=== PATIENT | female | born 1985 | race Caucasian/White ===

== ENCOUNTER → 2019-07-29 11:32 | Outpatient (CLI) | payer BC, SELFPAY ==
[2019-07-29 10:49] VITALS: BMI 19.2
[2019-07-29 12:37] LABS: Absolute Neutrophil Count 3.3 X10^3/uL (2.0-7.7); Basophil# 0.05 X10^3/uL; Eosinophil# 0.09 X10^3/uL; Eosinophils% 1.8 % (0-5); Hematocrit 40.8 % (37-47); Hemoglobin 13.4 g/dL (12.0-15.0); Lymphocyte % 24.1 % (19-41); Mean Corp Hgb Conc 32.8 g/dL (32-36); Mean Corpuscular Hgb 30.2 pg (27.0-32.0); Mean Corpuscular Volume 92.1 fL (81-99); Mean Platelet Vol. 10.2 fl (6.2-12.0); Monocyte# 0.38 X10^3/uL; Monocyte% 7.6 % (0-10); NRBC Flagged by Analyzer 0 % (0-5); Neutrophil # 3.25 X10^3/uL (2.7-7.7); Neutrophil % 65.3 % (47-70); Platelet Count 294 K/mm3 (150-450); RBC Distribution Width CV 12.9 % (11.6-14.6); RBC Distribution Width SD 43.5 fl (35.1-43.9); Red Blood Count 4.43 M/mm3 (4.2-5.4)
[2019-07-29 13:10] LABS: Anion Gap 6 (5-15); BUN 6 mg/dL (7-18); Calcium,Total 9.5 mg/dL (8.5-10.1); Chloride 105 mmol/L (98-107); Creatinine, Serum 0.75 mg/dL (0.55-1.02); EST Glomerular Filtration Rate 96 mL/min (>60); Est Glom Filt Rate - Afr Amer 116 mL/min (>60); Glucose 78 mg/dL (74-106); Potassium 4.1 mmol/L (3.5-5.1); Sodium Level 137 mmol/L (136-145)
== END ==
PROVIDERS: PCP Internal Medicine; Referring Provider Internal Medicine; Visit Provider Internal Medicine
DX: Z00.00 Encounter for general adult medical examination without abnormal findings (principal)
CPT/HCPCS: 36415; 80048; 85025

== ENCOUNTER → 2022-09-09 | Outpatient (CLI) | payer OTHER, SELFPAY ==
[2022-09-09 19:08] LABS: AST(SGOT) 23 U/L (15-37); Alanine Aminotransfer ALT/SGPT 16 U/L (13-56); Albumin, Serum 3.8 g/dL (3.2-5.0); Alkaline Phosphatase 80 U/L (45-117); Anion Gap 8 (5-15); BUN 14 mg/dL (7-18); BUN/Creat Ratio 22.1 RATIO (10-20); Chloride 104 mmol/L (98-107); Creatinine, Serum 0.63 mg/dL (0.55-1.02); EST Glomerular Filtration Rate 114 mL/min (>60); Est Glom Filt Rate - Afr Amer 137 mL/min (>60); Ferritin 16 ng/mL (8-252); Globulin 3.8 g/dL (2.2-4.2); Glucose 85 mg/dL (74-106); Protein, Total 7.6 g/dL (6.4-8.2); Sodium Level 137 mmol/L (136-145); T4 Free Direct 0.89 ng/dL (0.76-1.46); Thyroid Stim Hormone (TSH) 5.14 uIU/mL (0.358-3.74)
[2022-09-11 15:32] LABS: Anti-Nuclear Antibody Test Negative (.)
[2022-09-11 15:34] LABS: Thyroid Peroxidase AB 580 IU/mL (0-34)
== END | disposition home or self-care (01) ==
LOC: MTLAB 16:22
PROVIDERS: PCP Internal Medicine; Referring Provider Dermatology Pediatric Dermatology; Visit Provider Dermatology Pediatric Dermatology
DX: L40.0 Psoriasis vulgaris (principal)
CPT/HCPCS: 36415; 80053; 82728; 84439; 84443; 86038; 86376

== ENCOUNTER → 2022-10-01 | Outpatient (CLI) | payer OTHER, SELFPAY ==
[2022-10-01 17:05] LABS: T4 Free Direct 0.86 ng/dL (0.76-1.46); Thyroid Stim Hormone (TSH) 6.17 uIU/mL (0.358-3.74)
[2022-10-03 15:27] LABS: Thyroid Peroxidase AB 532 IU/mL (0-34)
== END | disposition home or self-care (01) ==
LOC: BIMLAB 14:53
PROVIDERS: PCP Internal Medicine; Visit Provider Internal Medicine
DX: E06.3 Autoimmune thyroiditis (principal); R94.6 Abnormal results of thyroid function studies
CPT/HCPCS: 36415; 84439; 84443; 86376

== ENCOUNTER → 2022-12-01 | Outpatient (CLI) | payer OTHER, SELFPAY ==
[2022-12-01 15:48] LABS: T4 Free Direct 1.06 ng/dL (0.76-1.46); Thyroid Stim Hormone (TSH) 2.21 uIU/mL (0.358-3.74)
[2022-12-03 04:07] LABS: Thyroid Peroxidase AB > 600 IU/mL (0-34)
== END | disposition home or self-care (01) ==
LOC: BIMLAB 14:32
PROVIDERS: PCP Internal Medicine; Visit Provider Internal Medicine
DX: E06.3 Autoimmune thyroiditis (principal); E03.8 Other specified hypothyroidism
CPT/HCPCS: 36415; 84439; 84443; 86376

== ENCOUNTER 2023-03-10 00:07 | Inpatient (IN) | payer OTHER, SELFPAY ==
[2023-03-10] VITALS (24 sets, daily range): BP systolic 90–121; BP diastolic 57–91; PULSE 60–89; RESP 14–19; TEMP 36.1–36.8; O2SAT 97–100; BMI 21.2; BMI 21.4
--- NOTE | 2023-03-10 00:35 | EDS_ITS ---
HPI History of Present Illness Chief Complaint: Suicidal [facility] Medical History Abnormal thyroid function test Delat's thyroiditis History of back injury Subclinical hypothyroidism Home Medications levothyroxine 50 mcg tablet See Rx Instructions .Route .COMPLEX #60 tabs 12/12/22 [Rx Last Taken Unknown] Allergy/AdvReac Type Severity Reaction Status Date / Time No Known Allergies Allergy Verified 03/10/23 00:09 Family History Mother Liver disease Other Alcoholism Diabetes Hyperlipemia Hypertension Social History Smoking Status: Never smoker alcohol intake: never substance use type: does not use what type of physical activity do you participate in: none EXAM Physical Exam Const Vital Signs: 03/10/23 00:09 03/10/23 01:47 Temperature 97 F L Temperature Source Temporal Pulse Rate 85 80 Respiratory Rate 16 Blood Pressure 121/83 H 92/76 Blood Pressure Mean 95 81 Pulse Ox 98 99 Oxygen Delivery Method Room Air [facility] Narrative Medical decision making narrative: HISTORY OF PRESENT ILLNESS: 37-year-old female here with suicide attempt. Apparently ingested 500 mg (~28, 500 mg) of Tylenol at approximately 430 pm on 03/09/2023 in an attempt to end her life. She notes no HI, AH, VH. No other drug ingestion. REVIEW OF SYSTEMS: Pertinent positives: Suicidal ideation, Pertinent negatives: HI, AH, VH PHYSICAL EXAM: Nursing triage notes reviewed, Vital signs reviewed Constitutional: please see mdm HENT: MMM Eyes: Pupils equal round and reactive to light, Extraocular muscles intact Neck: No stridor, no JVD, full neck ROM Lungs: Clear to auscultation, No wheezing or rales. No increased work of breathing, no conversational dyspnea, no accessory muscle use, no nasal flaring. No respiratory distress noted Heart: Regular rate and rhythm, No murmurs, No rubs and No gallops, 2+ distal pulses (radial, femoral, posterior tibial) in all extremities Abdomen: Soft, there is no tenderness, rigidity, rebound or guarding, no obvious peritoneal signs, no palpable pulsatile abdominal masses, no auscultated abdominal bruit : No CVAT Extremities: No edema Neuro: No focal neurological deficits, cranial nerves II through XII intact, 5/5 strength in all extremities. Intact sensation to light touch in all extremities, 2+ reflexes bilateral patella tendons. Normal gait. No ataxia. Skin: No rash or lesions noted MEDICAL DECISION MAKING: Chief Complaint: Suicidal ideation External records reviewed: No recent psychiatric evaluations Factors affecting care: History of Delta's thyroiditis, hypothyroidism Consults: Behavioral health ALL IMAGES (IF OBTAINED) HAVE BEEN PERSONALLY REVIEWED AND INTERPRETED BY MYSELF. EKG with normal sinus rhythm, normal axis, no intervals, no STEMI Tylenol is + concerning for acute OD Salicylate is negative UDS negative EtOH negative u preg negative BMP shows mild hypokalemia, no GAGE, No anion gap MDM Narrative: The patient was hemodynamically stable, afebrile, nontoxic-appearing. Abdominal exam was benign. I considered the following differential diagnosis: SI, Tylenol overdose I obtained a broad lab and imaging work-up for medical clearance. Including coingestions such as aspirin/salicylates and Tylenol. Spoke with poison control. Recommended starting acetylcysteine then multiplying tylenol by AST/ALT which ever is higher then give 15mg/kg of fomepizole as a one time dose (decreases hepatotoxicity). LFTs within normal limits. N-acetylcysteine was started. Patient admitted for further observation. With hospitalist. The patient and/or family, caregivers express understanding. The patient and/or family, caregivers agrees with the plan. Shared decision making: I will have a discussion with the patient and or visitors regarding risk/benefits of further testing or admission. They will be made aware of of the risk/benefits inherent in this decision they will be given the opportunity to voice understanding. Total critical care time today provided was at least 60 minutes. This excludes separately billable procedures. Critical care time (if documented) is secondary to the patient having high probability of clinically significant/life threatening deterioration in the patient's condition which required my urgent intervention. Impression: 1. Suicidal ideation 2. Suicide attempt 3. Tylenol overdose 4. hypokalemia Dispo: admit to medicine Lab Data Attestation: I reviewed the patient's lab results. Labs: Laboratory Results - last 24 hr 03/10/23 03/10/23 00:30 00:35 WBC 5.7 RBC 4.55 Hgb 13.3 Hct 41.4 MCV 91.0 MCH 29.2 MCHC 32.1 RDW Std Deviation 41.5 RDW Coeff of Jena 12.5 Plt Count 288 MPV 10.6 Immature Gran % (Auto) 0.400 Neut % (Auto) 56.5 Lymph % (Auto) 34.9 Bates % (Auto) 6.8 Eos % (Auto) 0.7 Baso % (Auto) 0.7 Absolute Neuts (auto) 3.2 Absolute Lymphs (auto) 1.99 Nucleated RBC % 0 Sodium 139 Potassium 3.1 L Chloride 106 Carbon Dioxide 23.0 Anion Gap 10 BUN 10 Creatinine 0.91 Estim Creat Clear Calc 80.78 Est GFR (MDRD) Af Amer 90 Est GFR (MDRD) Non-Af 75 BUN/Creatinine Ratio 11.0 Glucose 114 H Calcium 9.1 Total Bilirubin 0.40 Direct Bilirubin 0.14 AST 15 ALT 15 Alkaline Phosphatase 89 Total Protein 8.0 Albumin 4.1 Globulin 3.9 Serum , Qual NEGATIVE Salicylates < 1.7 L Urine Opiates Screen NEGATIVE Urine Methadone Screen NEGATIVE Acetaminophen 259.4 H* Ur Barbiturates Screen NEGATIVE Ur Phencyclidine Scrn NEGATIVE Ur Amphetamines Screen NEGATIVE MDMA (Ecstasy) Screen NEGATIVE U Benzodiazepines Scrn NEGATIVE Urine Cocaine Screen NEGATIVE U Cannabinoids Screen NEGATIVE Ur Drug Screen Comment Ethyl Alcohol < 3.0 Discharge Plan Dx/Rx/DC Orders Clinical Impression: Overdose on Tylenol Disposition Disposition: Acute Care Hospital [facility]
--- NOTE | 2023-03-10 00:43 | EKG12_ITS ---
Test Reason : DYSRHYTHMIA Blood Pressure : / mmHG Vent. Rate : 076 BPM Atrial Rate : 076 BPM P-R Int : 148 ms QRS Dur : 076 ms QT Int : 376 ms P-R-T Axes : 065 051 064 degrees QTc Int : 423 ms Normal sinus rhythm with sinus arrhythmia Normal ECG Confirmed by EDITH COREA, CHARLOTTE ([id number]), field map editor BELINDA MOSLEY ([id number]) on 03/12/2023 2:11:00 PM Referred By: Confirmed By:CHARLOTTE SHARMA MD
[2023-03-10 00:54] LABS: Absolute Lymphocyte Count 1.99 X10^3/uL (0.83-4.51); Absolute Neutrophil Count 3.2 X10^3/uL (2.0-7.7); Basophil# 0.04 X10^3/uL; Basophil% 0.7 % (0-1); Eosinophil# 0.04 X10^3/uL; Eosinophils% 0.7 % (0-5); Hematocrit 41.4 % (37-47); Hemoglobin 13.3 g/dL (12.0-15.0); Lymphocyte # 1.99 X10^3/ul (0.83-4.51); Lymphocyte % 34.9 % (19-41); Mean Corp Hgb Conc 32.1 g/dL (32-36); Mean Corpuscular Hgb 29.2 pg (27.0-32.0); Mean Platelet Vol. 10.6 fl (6.2-12.0); Monocyte# 0.39 X10^3/uL; Monocyte% 6.8 % (0-10); NRBC Flagged by Analyzer 0 % (0-5); Neutrophil # 3.22 X10^3/uL (2.7-7.7); Neutrophil % 56.5 % (47-70); Platelet Count 288 K/mm3 (150-450); RBC Distribution Width CV 12.5 % (11.6-14.6); RBC Distribution Width SD 41.5 fl (35.1-43.9); Red Blood Count 4.55 M/mm3 (4.2-5.4); White Blood Count 5.7 K/mm3 (4.4-11.0)
[2023-03-10] MEDS: 0.9% Normal Saline (1000mL) 1,000 ML 999 ML IV ×2 (00:54→03:40)
[2023-03-10] MEDS: Ondansetron 4 MG/2 ML Vial IV ×2 (00:54→06:39)
[2023-03-10 01:04] LABS: Internal QC Validated? YES +Cl - CLEAR BKGD; Pregnancy, Serum, hCG Quali. NEGATIVE Negative; Record Kit Lot#, Serum Preg. HCG0000667200
[2023-03-10 01:07] LABS: Amphetamine Urine VISTA NEGATIVE (<1000 ng/mL); Barbiturate Urine VISTA NEGATIVE (< 200 ng/mL); Benzodiazepine Urine VISTA NEGATIVE (< 200 ng/mL); Cocaine Urine VISTA NEGATIVE (< 300 ng/mL); Ecstacy Urine VISTA NEGATIVE (< 500 ng/mL); Methadone Urine VISTA NEGATIVE (< 300 ng/mL); PCP Urine VISTA NEGATIVE (< 25 ng/mL); THC Urine VISTA NEGATIVE (< 50 ng/mL); Vista UDS pH Range 4
[2023-03-10 01:09] LABS: Anion Gap 10 (5-15); BUN 10 mg/dL (7-18); Calcium,Total 9.1 mg/dL (8.5-10.1); Chloride 106 mmol/L (98-107); Creatinine, Serum 0.91 mg/dL (0.55-1.02); EST Glomerular Filtration Rate 75 mL/min (>60); Est Glom Filt Rate - Afr Amer 90 mL/min (>60); Estimated Creatinine Clearance 80.78 ml/min; Glucose 114 mg/dL (74-106); Potassium 3.1 mmol/L (3.5-5.1); Sodium Level 139 mmol/L (136-145)
[2023-03-10 01:15] LABS: Acetaminophen (Tylenol) Level 259.4 ug/mL (10.0-30.0); Alcohol, Blood (Medical)-Serum < 3.0 mg/dL; Salicylate < 1.7 mg/dL (2.8-20.0)
[2023-03-10 01:43] LABS: AST(SGOT) 15 U/L (15-37); Alanine Aminotransfer ALT/SGPT 15 U/L (13-56); Albumin, Serum 4.1 g/dL (3.2-5.0); Alkaline Phosphatase 89 U/L (45-117); Bilirubin, Direct 0.14 mg/dL (0.00-0.30); Globulin 3.9 g/dL (2.2-4.2)
--- NOTE | 2023-03-10 01:56 | PCM.HP.STD ---
HPI - General General Date of Admission: 03/10/23 Date of Service: 03/10/23 Chief Complaint: Tylenol overdose in suicide attempt HPI Narrative ANIL HAYES, is a 37 F with a significant history of Delta thyroiditis on who presents emergency department with a Tylenol overdose inside at times. Reportedly patient took 28 pills of 500 mg tablets of Tylenol. She took the pill at about 4 PM on March 09, 2023. Thereafter her brought her to the emergency department. She reports lower abdominal pain, nausea and vomiting. She states that she has a lot going on that is why she tried to hurt herself. ED doctor discussed the case with poison control and recommendation was that patient be kept at the hospital. [facility] Medical History Abnormal thyroid function test Delta's thyroiditis History of back injury Subclinical hypothyroidism Home Medications levothyroxine 50 mcg tablet See Rx Instructions .Route .COMPLEX #60 tabs 12/12/22 [Rx Last Taken Unknown] Allergy/AdvReac Type Severity Reaction Status Date / Time No Known Allergies Allergy Verified 03/10/23 00:09 Family History Mother Liver disease Other Alcoholism Diabetes Hyperlipemia Hypertension no surgical history Social History Smoking Status: Never smoker alcohol intake: never substance use type: does not use what type of physical activity do you participate in: none ROS ROS Narrative Pertinent positives and pertinent negatives as noted in HPI. All other systems were reviewed and are negative Vital Signs Vital Signs Vital Signs: 03/10/23 00:09 03/10/23 01:47 Temperature 97 F L Temperature Source Temporal Pulse Rate 85 80 Respiratory Rate 16 Blood Pressure 121/83 H 92/76 Blood Pressure Mean 95 81 Pulse Ox 98 99 Oxygen Delivery Method Room Air Weight Weight: 59.8 kg Body Mass Index (BMI) 21.2 Physical Exam Narrative Physical exam: General: Well-nourished, well-developed. Head: Normocephalic, atraumatic, no tenderness Eyes: Vision is grossly intact. EOMI ENT, no trauma, moist mucous membranes, no rhinorrhea Neck: Nontender, No thyromegaly. CVS: Regular rate and rhythm. S1-S2 present. No murmur, gallop or rub. Respiratory : clear to auscultation bilaterally, chest wall nontender Abdomen: Soft, tender, nondistended, normal bowel sounds, no masses : Deferred Back: Nontender, no CVA tenderness. Extremities: Nontender full range of motion, no trauma Skin: Normal color, no trauma, abrasions Neuro: Alert, oriented, cranial nerves II through XII grossly intact. Psychiatry: Appears depressed with monotonic voice and psychomotor retardation Results Lab / Micro Data 03/10/23 00:30 03/10/23 00:30 Labs: Laboratory Results - last 24 hr 03/10/23 00:30: WBC 5.7, RBC 4.55, Hgb 13.3, Hct 41.4, MCV 91.0, MCH 29.2, MCHC 32.1, RDW Std Deviation 41.5, RDW Coeff of Jena 12.5, Plt Count 288, MPV 10.6, Immature Gran % (Auto) 0.400, Neut % (Auto) 56.5, Lymph % (Auto) 34.9, Terry % (Auto) 6.8, Eos % (Auto) 0.7, Baso % (Auto) 0.7, Absolute Neuts (auto) 3.2, Absolute Lymphs (auto) 1.99, Nucleated RBC % 0, Sodium 139, Potassium 3.1 L, Chloride 106, Carbon Dioxide 23.0, Anion Gap 10, BUN 10, Creatinine 0.91, Estim Creat Clear Calc 80.78, Est GFR (MDRD) Af Amer 90, Est GFR (MDRD) Non-Af 75, BUN/Creatinine Ratio 11.0, Glucose 114 H, Calcium 9.1, Total Bilirubin 0.40, Direct Bilirubin 0.14, AST 15, ALT 15, Alkaline Phosphatase 89, Total Protein 8.0, Albumin 4.1, Globulin 3.9, Serum , Qual NEGATIVE, Salicylates < 1.7 L, Acetaminophen 259.4 H*, Ethyl Alcohol < 3.0 03/10/23 00:35: Urine Opiates Screen NEGATIVE, Urine Methadone Screen NEGATIVE, Ur Barbiturates Screen NEGATIVE, Ur Phencyclidine Scrn NEGATIVE, Ur Amphetamines Screen NEGATIVE, MDMA (Ecstasy) Screen NEGATIVE, U Benzodiazepines Scrn NEGATIVE, Urine Cocaine Screen NEGATIVE, U Cannabinoids Screen NEGATIVE, Ur Drug Screen Comment Micro: Microbiology 03/10/23 00:35 Nasal Secretion SARS-CoV-2 Antigen (Rapid) - Final Assessment & Plan Assessment/Plan (1) Overdose on Tylenol: QUALIFIERS: Encounter type: initial encounter Injury intent: intentional self-harm Qualified Code(s): T39.1X2A - Poisoning by 4-Aminophenol derivatives, intentional self-harm, initial encounter (2) Suicide attempt by drug overdose: PLAN: Plan Suicidal attempt by Tylenol overdose ED labs reviewed showed acetaminophen level of 259.4. Started on acetylcysteine at the ED and continued. EKG with sinus rhythm with no QTc prolongation. Supportive treatment with as needed IV antiemetics. Normal saline infusion ordered. Liver biochemistry normal. Trend CMP. Tylenol level Suicidal precautions. Case management consult Trend Tylenol level. DVT prophylaxis Low risk Time spent in the patient's overall evaluation,decision-making process, review of diagnostic data, adjustment of management, discussion with other providers, nursing nursing and ancillary staff involved in patient's care documentation, 65 minutes. Charges/Coding Visit Charges Inpatient E&M: 48096 Init Hosp L3
[2023-03-10] MEDS: Metoclopramide 10 MG/2 ML Vial 5 MG IV (03:40)
[2023-03-10] MEDS: proCHLORPERazine 10 MG/2 ML Vial 5 MG IV (05:51)
[2023-03-10] MEDS: 0.9% Saline Lock 10 ML Syringe IV ×2 (05:52→06:40)
[2023-03-10] MEDS: 0.9% Normal Saline (1000mL) 1,000 ML 75 ML IV ×2 (05:52→17:46)
--- NOTE | 2023-03-10 06:53 | NURSING ---
Pt arrived to unit from ED. complaining of Nausea. Zofran given. Sitter present at bedside. patient is very drowsy with flat effect. one word answers. very quiet. oriented and responsive. vital signs stable. on RA. LS clear. spouse at bedside.
[2023-03-10] MEDS: Levothyroxine 50 MCG Tablet PO (08:24)
[2023-03-10] MEDS: Potassium Chloride Oral Tablet 20 MEQ 40 MEQ PO (08:24)
[2023-03-10 09:56] LABS: Absolute Lymphocyte Count 0.91 X10^3/uL (0.83-4.51); Absolute Neutrophil Count 3.1 X10^3/uL (2.0-7.7); Basophil# 0.02 X10^3/uL; Basophil% 0.5 % (0-1); Hematocrit 35.4 % (37-47); Hemoglobin 11.5 g/dL (12.0-15.0); Lymphocyte # 0.91 X10^3/ul (0.83-4.51); Lymphocyte % 21.1 % (19-41); Mean Corp Hgb Conc 32.5 g/dL (32-36); Mean Corpuscular Hgb 29.6 pg (27.0-32.0); Mean Platelet Vol. 10.8 fl (6.2-12.0); Monocyte# 0.29 X10^3/uL; Monocyte% 6.7 % (0-10); NRBC Flagged by Analyzer 0 % (0-5); Neutrophil # 3.08 X10^3/uL (2.7-7.7); Neutrophil % 71.5 % (47-70); Platelet Count 251 K/mm3 (150-450); RBC Distribution Width CV 12.5 % (11.6-14.6); RBC Distribution Width SD 41.4 fl (35.1-43.9); Red Blood Count 3.89 M/mm3 (4.2-5.4); White Blood Count 4.3 K/mm3 (4.4-11.0)
--- NOTE | 2023-03-10 09:56 | CON.PCM.CC_ITS ---
Assessment & Plan Assessment/Plan (1) Suicide attempt by drug overdose: (2) Overdose on Tylenol: QUALIFIERS: Encounter type: initial encounter Injury intent: i ntentional self-harm Qualified Code(s): T39.1X2A - Poisoning by 4-Aminophenol derivatives, intentional self-harm, initial encounter (3) Delta's thyroiditis: PLAN: Plan * Patient ingested 28 pills of Tylenol 500 mg at 4 PM yesterday * ED physician contacted poison control who recommended slow sustained infusion. She will continue acetylcysteine until around 5 PM. We will obtain repeat LFTs and Tylenol levels before discontinuing acetylcysteine * Awaiting PT INR levels before initiating chemical DVT prophylaxis * Bedside sitter * Social work is on board * Continue close ICU monitoring for liver enzymes and concern for any deteri oration as a consequence of drug overdose * Patient is at risk of deterioration due to Tylenol overdose I spent 33 minutes of critical care time excluding the procedure time. I reviewed lab work, images, previous records and medication list. HPI Consult Data Date of Consult: 03/10/23 HPI Narrative Reason for Consultation: ICU care HPI Narrative: ANIL HAYES, is a 37 F with past medical history of hypothyroidism who presents with suicidal ideation and Tylenol over [employer]. She reportedly took 28 pills of 500 mg of Tylenol tablets. She reportedly ingested the Tylenol at 4 PM yesterday. ED contacted poison control who recommended initiation of acetylcysteine. Patient's liver enzymes appear to be within normal limits. She has a bedside sitter for suicidal ideation. This morning she has complains of nausea vomiting which has been improving. She is going to try to have some breakfast. Otherwise she denies fever, chills, weight loss, or cough. [facility] Medical History Abnormal thyroid function test Delta's thyroiditis History of back injury Subclinical hypothyroidism Home Medications levothyroxine 50 mcg tablet See Rx Instructions .Route .COMPLEX #60 tabs 12/12/22 [Rx Last Taken Unknown] clobetasol 0.05 % scalp solution 1 applic topical DAILY PSORIASIS 03/10/23 [History Last Taken Unknown] Allergy/AdvReac Type Severity Reaction Status Date / Time No Known Allergies Allergy Verified 03/10/23 00:09 Family History Mother Liver disease Other Alcoholism Diabetes Hyperlipemia Hypertension Surgical History no surgical history Social History Smoking Status: Never smoker alcohol intake: never substance use type: does not use what type of physical activity do you participate in: none ROS ROS Narrative Negative except as mentioned above Physical Exam Narrative General alert oriented in no acute distress HEENT. Normocephalic atraumatic, pupils equal and reactive Respiratory equal air entry bilaterally, no wheezing Cardiac S1-S2, regular rate and rhythm GI abdomen soft and nontender MSK no lower extremity edema Skin no rashes Neuro moves all extremities, no dysarthria, no facial droop Medical Records Data Attestation: I reviewed the patient's medical records Lab / Micro Data Attestation: I reviewed the patient's lab results. 03/10/23 00:30 03/10/23 00:30 Labs: Laboratory Results - last 24 hr 03/10/23 00:30: WBC 5.7, RBC 4.55, Hgb 13.3, Hct 41.4, MCV 91.0, MCH 29.2, MCHC 32.1, RDW Std Deviation 41.5, RDW Coeff of Jena 12.5, Plt Count 288, MPV 10.6, Immature Gran % (Auto) 0.400, Neut % (Auto) 56.5, Lymph % (Auto) 34.9, [place] % (Auto) 6.8, Eos % (Auto) 0.7, Baso % (Auto) 0.7, Absolute Neuts (auto) 3.2, Absolute Lymphs (auto) 1.99, Nucleated RBC % 0, Sodium 139, Potassium 3.1 L, Chloride 106, Carbon Dioxide 23.0, Anion Gap 10, BUN 10, Creatinine 0.91, Estim Creat Clear Calc 80.78, Est GFR (MDRD) Af Amer 90, Est GFR (MDRD) Non-Af 75, BUN/Creatinine Ratio 11.0, Glucose 114 H, Calcium 9.1, Total Bilirubin 0.40, Direct Bilirubin 0.14, AST 15, ALT 15, Alkaline Phosphatase 89, Total Protein 8.0, Albumin 4.1, Globulin 3.9, Serum , Qual NEGATIVE, Salicylates < 1.7 L, Acetaminophen 259.4 H*, Ethyl Alcohol < 3.0 03/10/23 00:35: Urine Opiates Screen NEGATIVE, Urine Methadone Screen NEGATIVE, Ur Barbiturates Screen NEGATIVE, Ur Phencyclidine Scrn NEGATIVE, Ur Amphetamines Screen NEGATIVE, MDMA (Ecstasy) Screen NEGATIVE, U Benzodiazepines Scrn NEGATIVE, Urine Cocaine Screen NEGATIVE, U Cannabinoids Screen NEGATIVE, Ur Drug Screen Comment Micro: Microbiology 03/10/23 00:35 Nasal Secretion SARS-CoV-2 Antigen (Rapid) - Final Charges/Coding Procedures Hospitalists Procedures: 52935 Critial Care 1st Hr
[2023-03-10 10:04] LABS: International Normalized Ratio 1.3; Prothrombin Time (Protime)PT. 16.1 SECONDS (11.7-14.9)
[2023-03-10 10:15] LABS: ALB/GLOB Ratio 0.9 RATIO (0.9-2.4); AST(SGOT) 13 U/L (15-37); Alanine Aminotransfer ALT/SGPT 19 U/L (13-56); Albumin, Serum 3.1 g/dL (3.2-5.0); Alkaline Phosphatase 63 U/L (45-117); Anion Gap 7 (5-15); BUN 5 mg/dL (7-18); BUN/Creat Ratio 7.8 RATIO (10-20); Calcium,Total 7.8 mg/dL (8.5-10.1); Chloride 112 mmol/L (98-107); Creatinine, Serum 0.64 mg/dL (0.55-1.02); EST Glomerular Filtration Rate 111 mL/min (>60); Est Glom Filt Rate - Afr Amer 135 mL/min (>60); Estimated Creatinine Clearance 114.86 ml/min; Globulin 3.5 g/dL (2.2-4.2); Glucose 116 mg/dL (74-106); Potassium 3.8 mmol/L (3.5-5.1); Protein, Total 6.6 g/dL (6.4-8.2); Sodium Level 140 mmol/L (136-145)
--- NOTE | 2023-03-10 14:34 | CASEMGMT ---
Social Work Met with patient in room, introducing to self and social work role. Patient's [place] in the room, along with a 1:1 [facility] sitter. Asked to leave the room for private conversation, and offered for 1:1 sitter to take a break while this conventional underwriter spoke with patient privately. cooperative with social work request to leave the room. Completed social determinants of health screening. See intervention for further details of screening. No additional resources provided this date. Denies any personal safety concern with or family. Also checked in with patient related to reason for admission. Explored with patient reason for admission: Overdose of #28, 500mg tablets of Tylenol in a suicide attempt. Patient shares with this conventional underwriter has been feeling overwhelmed for some time now, with pressures and responsibilities mounting in patient's life becoming more overwhelming causing an increase of emotional distress. Patient reports belief to be experiencing both depression and anxiety. Reports has been thinking about suicide for some time now (was not specific on the timeframe, but was clear this was not an impulsive act). Reports yesterday became overwhelmed, thinking about the week ahead; all of the things patient needs to do that patient decided to attempt suicide. Patient reports took the Tylenol, but did not realize it would take so long to take effect. Patient reports after a couple of hours, started to feel ill and then told what she had done. Patient reports to feel her actions were a cry for help but also admits other recent depressive symptoms. Mood: Depressed mood and anxiety reported. Symptoms: hopelessness, helplessness, poor sleep and appetite Forgets to eat. 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 of 14 years is reported to have hoarding issues, to the point that patient is embarrassed to invite people over. Reports does not talk to her about this, and reports belief that is aware of this as a stressor to patient. Reports both the work and home situation contribute to patient's anxiety. 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 [facility], so people have many responsibilities. Patient reports belief that needs to work on learning to say no and be okay with this. Coping skills: Unable to identify any coping skills, or anything patient enjoys doing. Mental health treatment history: No history of counseling or medication. Family history: Reports a cousin by suicide years ago; believes by gunshot. Access to Lethal mean: Reports had guns in the home. Denies knowing how to use guns, does not know where they are at, and believes are locked up. Educated patient that prior to leaving the hospital, prior to return to community, that this will need to be addressed with patient's . Assessment: Patient cooperative and pleasant with social work visit. Appeared slightly guarded, though answered questions asked. Patient appeared surprised when medical social worker asked about coping, and was unable to say any coping skills, stating I don't know. Discussed possibility of inpatient psychiatric admission, in light of attempt, and attempt which resulted in ICU stay for stabilization. Patient reports would be cooperative with recommendations for care. Emotional support offered to patient. Plan: Look at inpatient psychiatric care once medically stable. Hospital SW or Crisis from [facility] to assist. -JENNA Anderson, DORA
[2023-03-10] MEDS: Enoxaparin 40 MG/0.4 ML Syringe SC (15:31)
[2023-03-10 22:28] LABS: Acetaminophen (Tylenol) Level 11.1 ug/mL (10.0-30.0)
[2023-03-11] VITALS (11 sets, daily range): BP systolic 88–116; BP diastolic 64–88; PULSE 51–75; RESP 15–19; TEMP 36.3–36.7; O2SAT 98–100; BMI 21.6
[2023-03-11 03:53] LABS: Absolute Lymphocyte Count 2.18 X10^3/uL (0.83-4.51); Absolute Neutrophil Count 2.1 X10^3/uL (2.0-7.7); Basophil# 0.04 X10^3/uL; Basophil% 0.9 % (0-1); Eosinophil# 0.06 X10^3/uL; Eosinophils% 1.3 % (0-5); Hematocrit 34.4 % (37-47); Hemoglobin 10.8 g/dL (12.0-15.0); Lymphocyte # 2.18 X10^3/ul (0.83-4.51); Lymphocyte % 47.1 % (19-41); Mean Corp Hgb Conc 31.4 g/dL (32-36); Mean Corpuscular Volume 92.5 fL (81-99); Mean Platelet Vol. 10.7 fl (6.2-12.0); Monocyte# 0.27 X10^3/uL; Monocyte% 5.8 % (0-10); NRBC Flagged by Analyzer 0 % (0-5); Neutrophil # 2.08 X10^3/uL (2.7-7.7); Neutrophil % 44.9 % (47-70); Platelet Count 219 K/mm3 (150-450); RBC Distribution Width SD 43.9 fl (35.1-43.9); Red Blood Count 3.72 M/mm3 (4.2-5.4); White Blood Count 4.6 K/mm3 (4.4-11.0)
[2023-03-11 04:18] LABS: AST(SGOT) 12 U/L (15-37); Alanine Aminotransfer ALT/SGPT 15 U/L (13-56); Albumin, Serum 3.1 g/dL (3.2-5.0); Alkaline Phosphatase 57 U/L (45-117); Anion Gap 6 (5-15); BUN 1 mg/dL (7-18); BUN/Creat Ratio 1.7 RATIO (10-20); Calcium,Total 8.1 mg/dL (8.5-10.1); Chloride 114 mmol/L (98-107); Creatinine, Serum 0.58 mg/dL (0.55-1.02); EST Glomerular Filtration Rate 126 mL/min (>60); Est Glom Filt Rate - Afr Amer 152 mL/min (>60); Estimated Creatinine Clearance 126.74 ml/min; Globulin 3.2 g/dL (2.2-4.2); Glucose 89 mg/dL (74-106); Potassium 3.8 mmol/L (3.5-5.1); Protein, Total 6.3 g/dL (6.4-8.2); Sodium Level 141 mmol/L (136-145)
[2023-03-11 04:30] LABS: Acetaminophen (Tylenol) Level 4.2 ug/mL (10.0-30.0); International Normalized Ratio 1.3; Prothrombin Time (Protime)PT. 16.1 SECONDS (11.7-14.9)
[2023-03-11] MEDS: 0.9% Normal Saline (1000mL) 1,000 ML 75 ML IV (05:20)
[2023-03-11] MEDS: Levothyroxine 50 MCG Tablet PO (05:20)
--- NOTE | 2023-03-11 09:14 | PCM.PN.HOSP ---
Subjective Subjective Doing well, denies any abdominal pain. Tylenol level is normal and liver function tests are normal Objective Data Objective Data Vital Signs: Vital Signs Temp Pulse Resp BP Pulse Ox O2 Del Method 97.9 F 73 16 103/75 99 Room Air 03/11/23 08:00 03/11/23 08:00 03/11/23 08:00 03/11/23 08:00 03/11/23 08:00 03/11/23 08:00 Oxygen Delivery Method Room Air Weight: 134 lb 8 oz Body Mass Index (BMI) 21.6 Intake & Output: Intake and Output for Last 24 Hours 03/10/23 03/11/23 03/12/23 03:59 03:59 03:59 Intake Total 1000 / 1000 3922.20 / 3922.20 1078.75 / 1078.75 Output Total 0 / 0 0 / 0 Balance 1000 / 1000 3922.20 / 3922.20 1078.75 / 1078.75 Lab / Micro Data 03/11/23 03:40 03/11/23 03:40 Labs: Laboratory Results - last 24 hr 03/10/23 09:35: WBC 4.3 L, RBC 3.89 L, Hgb 11.5 L, Hct 35.4 L, MCV 91.0, MCH 29.6, MCHC 32.5, RDW Std Deviation 41.4, RDW Coeff of Jena 12.5, Plt Count 251, MPV 10.8, Immature Gran % (Auto) 0.200, Neut % (Auto) 71.5 H, Lymph % (Auto) 21.1, Edwards % (Auto) 6.7, Eos % (Auto) 0.0, Baso % (Auto) 0.5, Absolute Neuts (auto) 3.1, Absolute Lymphs (auto) 0.91, Nucleated RBC % 0, PT 16.1 H, INR 1.3, Sodium 140, Potassium 3.8, Chloride 112 H, Carbon Dioxide 21.0, Anion Gap 7, BUN 5 L, Creatinine 0.64, Estim Creat Clear Calc 114.86, Est GFR (MDRD) Af Amer 135, Est GFR (MDRD) Non-Af 111, BUN/Creatinine Ratio 7.8 L, Glucose 116 H, Calcium 7.8 L, Total Bilirubin 0.50, AST 13 L, ALT 19, Alkaline Phosphatase 63, Total Protein 6.6, Albumin 3.1 L, Globulin 3.5, Albumin/Globulin Ratio 0.9, Acetaminophen 104.0 H* 03/10/23 22:00: Acetaminophen 11.1 03/11/23 03:40: WBC 4.6, RBC 3.72 L, Hgb 10.8 L, Hct 34.4 L, MCV 92.5, MCH 29.0, MCHC 31.4 L, RDW Std Deviation 43.9, RDW Coeff of Jena 13.0, Plt Count 219, MPV 10.7, Immature Gran % (Auto) 0.000, Neut % (Auto) 44.9 L, Lymph % (Auto) 47.1 H, Edwards % (Auto) 5.8, Eos % (Auto) 1.3, Baso % (Auto) 0.9, Absolute Neuts (auto) 2.1, Absolute Lymphs (auto) 2.18, Nucleated RBC % 0, PT 16.1 H, INR 1.3, Sodium 141, Potassium 3.8, Chloride 114 H, Carbon Dioxide 21.0, Anion Gap 6, BUN 1 L, Creatinine 0.58, Estim Creat Clear Calc 126.74, Est GFR (MDRD) Af Amer 152, Est GFR (MDRD) Non-Af 126, BUN/Creatinine Ratio 1.7 L, Glucose 89, Calcium 8.1 L, Total Bilirubin 0.50, AST 12 L, ALT 15, Alkaline Phosphatase 57, Total Protein 6.3 L, Albumin 3.1 L, Globulin 3.2, Albumin/Globulin Ratio 1.0, Acetaminophen 4.2 L Micro: Microbiology 03/10/23 00:35 Nasal Secretion SARS-CoV-2 Antigen (Rapid) - Final Physical Exam Narrative General: Alert, Oriented x3, Cooperative, No apparent distress HEENT: Atraumatic, PERRLA, EOMI, Normocephalic Oral: Moist Mucosa Neck: Supple, No JVD Lungs: Clear to auscultation, Normal air movement, No rhonchi, No wheeze, No rales Cardiovascular: Regular rate, Regular Rhythm, Normal S1, Normal S2, No murmurs Abdomen: Soft, Non Tender, Non-Distended, No Hepato-splenomegaly Extremities: No edema, Capillary Refill Less than 3 Seconds Skin: No rashes, No breakdown Musculoskeletal: No Tenderness to Palpation of Joints or Extremities Neurological: Cranial nerves II-XII grossly intact, Motor Exam 5/5 strength throughout, Sensory exam intact to light touch and pain Psych/Mental Status: Depression here for suicide attempt Assessment & Plan Assessment/Plan (1) Overdose on Tylenol: QUALIFIERS: Encounter type: initial encounter Injury intent: intentional self-harm Qualified Code(s): T39.1X2A - Poisoning by 4-Aminophenol derivatives, intentional self-harm, initial encounter (2) Suicide attempt by drug overdose: PLAN: Plan 1. Suicide attempt with Tylenol overdose ? She has completed N-acetylcysteine ? Liver functions are stable and Tylenol levels are stable ? She is medically cleared for discharge, will consult crisis for mental health placement 2. Hypothyroidism ? Stable ? Continue with Synthroid DVT: Ambulation Charges/Coding Visit Charges Inpatient E&M: 34848 Subs Hosp L2
--- NOTE | 2023-03-11 09:40 | PN.CC_ITS ---
Assessment & Plan Assessment/Plan (1) Suicide attempt by drug overdose: (2) Overdose on Tylenol: QUALIFIERS: Encounter type: initial encounter Injury intent: i ntentional self-harm Qualified Code(s): T39.1X2A - Poisoning by 4-Aminophenol derivatives, intentional self-harm, initial encounter (3) Delta's thyroiditis: PLAN: Plan * Patient ingested 28 pills of Tylenol 500 mg at 4 PM on 03/09 * Patient completed acetylcysteine. Her Tylenol level is now within normal limits. Her LFTs remain normal * Bedside sitter * Social work is on board * Patient is stable for transfer out of the ICU and medically cleared for psychiatric evaluation Subjective Subjective No acute events. Patient's LFTs have remained normal. Her Tylenol level has normalized. She has no complaints this morning Objective Data Objective Data Vital Signs: Vital Signs Temp Pulse Resp BP Pulse Ox O2 Del Method 36.6 C 62 16 107/80 100 Room Air 03/11/23 09:00 03/11/23 09:00 03/11/23 09:00 03/11/23 09:00 03/11/23 09:00 03/11/23 09:00 Oxygen Delivery Method Room Air Weight: 61.008 kg Body Mass Index (BMI) 21.6 Intake & Output: Intake and Output for Last 24 Hours 03/09/23 03/10/23 03/11/23 23:59 23:59 23:59 Intake Total 3892.30 / 3892.30 2108.65 / 2108.65 Output Total 0 / 0 0 / 0 Balance 3892.30 / 3892.30 2108.65 / 2108.65 Lab / Micro Data 03/11/23 03:40 03/11/23 03:40 Labs: Laboratory Results - last 24 hr 03/10/23 09:35: WBC 4.3 L, RBC 3.89 L, Hgb 11.5 L, Hct 35.4 L, MCV 91.0, MCH 29.6, MCHC 32.5, RDW Std Deviation 41.4, RDW Coeff of Jena 12.5, Plt Count 251, MPV 10.8, Immature Gran % (Auto) 0.200, Neut % (Auto) 71.5 H, Lymph % (Auto) 21.1, [place] % (Auto) 6.7, Eos % (Auto) 0.0, Baso % (Auto) 0.5, Absolute Neuts (auto) 3.1, Absolute Lymphs (auto) 0.91, Nucleated RBC % 0, PT 16.1 H, INR 1.3, Sodium 140, Potassium 3.8, Chloride 112 H, Carbon Dioxide 21.0, Anion Gap 7, BUN 5 L, Creatinine 0.64, Estim Creat Clear Calc 114.86, Est GFR (MDRD) Af Amer 135, Est GFR (MDRD) Non-Af 111, BUN/Creatinine Ratio 7.8 L, Glucose 116 H, Calcium 7.8 L, Total Bilirubin 0.50, AST 13 L, ALT 19, Alkaline Phosphatase 63, Total Protein 6.6, Albumin 3.1 L, Globulin 3.5, Albumin/Globulin Ratio 0.9, Acetaminophen 104.0 H* 03/10/23 22:00: Acetaminophen 11.1 03/11/23 03:40: WBC 4.6, RBC 3.72 L, Hgb 10.8 L, Hct 34.4 L, MCV 92.5, MCH 29.0, MCHC 31.4 L, RDW Std Deviation 43.9, RDW Coeff of Jena 13.0, Plt Count 219, MPV 10.7, Immature Gran % (Auto) 0.000, Neut % (Auto) 44.9 L, Lymph % (Auto) 47.1 H, Berks % (Auto) 5.8, Eos % (Auto) 1.3, Baso % (Auto) 0.9, Absolute Neuts (auto) 2.1, Absolute Lymphs (auto) 2.18, Nucleated RBC % 0, PT 16.1 H, INR 1.3, Sodium 141, Potassium 3.8, Chloride 114 H, Carbon Dioxide 21.0, Anion Gap 6, BUN 1 L, Creatinine 0.58, Estim Creat Clear Calc 126.74, Est GFR (MDRD) Af Amer 152, Est GFR (MDRD) Non-Af 126, BUN/Creatinine Ratio 1.7 L, Glucose 89, Calcium 8.1 L, Total Bilirubin 0.50, AST 12 L, ALT 15, Alkaline Phosphatase 57, Total Protein 6.3 L, Albumin 3.1 L, Globulin 3.2, Albumin/Globulin Ratio 1.0, Acetaminophen 4.2 L Micro: Microbiology 03/10/23 00:35 Nasal Secretion SARS-CoV-2 Antigen (Rapid) - Final Physical Exam Narrative General alert oriented in no acute distress HEENT. Normocephalic atraumatic, pupils equal and reactive Respiratory equal air entry bilaterally, no wheezing Cardiac S1-S2, regular rate and rhythm GI abdomen soft and nontender MSK no lower extremity edema Skin no rashes Neuro moves all extremities, no dysarthria, no facial droop Charges/Coding Visit Charges Inpatient E&M: 45590 Subs Hosp L3
[2023-03-11] MEDS: Clobetasol Propionate 0.05% Cream 1 APPLIC TOPICAL (09:47)
[2023-03-11] MEDS: Enoxaparin 40 MG/0.4 ML Syringe SC (09:48)
--- NOTE | 2023-03-11 09:59 | NURSING ---
crisis in to assess pt and pt told crisis that was not going for tx and that was ok to just go home protocol on pink slipping went over with pt but wanting to talk to . dr. wild texted and in to see pt. pt aware that is not voluntary and that will be going in fact. pt more accepting of fact and subdued. cooperative with care. tele dc'd per status change and sitter remains. no other needs at this time
--- NOTE | 2023-03-11 11:48 | NURSING ---
pt brother in and wanting to talk with regarding a transfer to a facility in [place] and me taking her there dr. wild on unit and talking with brother with pt's consent verbally to do so. crisis called and looking into a facility and brother aware that has to be third libertarian acceptance and cannot just get word of mouth saying he would take her.
--- NOTE | 2023-03-11 13:29 | NURSING ---
[id number] spoke to an intake admission coordinator for [facility] in [place], [place] via phone after brother called to start transfer process pt labs, h&p and demographics faxed over with pink slip documentation per request. pt contines to be cooperative. eating lunch in bed after being up to bathroom. psych protocol, admission process teaching continues. family frustrated but understood. dr. wild updated as well
--- NOTE | 2023-03-11 16:29 | NURSING ---
called for update and aware that accepting at generations and that greens picker time 1730. will bring some clothes in a bit.
--- NOTE | 2023-03-11 16:34 | CHAPLAIN ---
Type of Pastoral Visit _x__ Initial Visit ___ Follow-up Visit ___ On-call Visit ___ General Patient Visit ___ Spiritual Assessment ___ Family Conference ___ Bereavement ___ Rapid Response ___ Code Blue ___ Other (describe below) Pastoral Care Referral From _x__ Patient ___ Family ___ Nurse ___ Physician ___ Swatch Maker ___ Sfdc Architect ___ Other (describe below) Sacrament/Intervention _x__ Active listening ___ Anointing ___ Voodoo ___ Bereavement ___ Communion _x__ Jacqui exploration ___ _x__ Life review _x__ Prayer ___ Reconciliation ___ Sacrament of Sick _x__ Supportive presence ___ Wedding ___ Other (describe below) Pastoral Comments patient has a sitter and a brother in the room; interaction with brother is positive with this shipping team leader as he explains I have been a shipping team leader and am now a counselor with mental health with I've driven 10 hours today to be here for my sister; sitter offers to leave and invites brother to leave as well; at this time it is just patient and this shipping team leader; pt appears to be very open and forthcoming about her situation and her desperation; 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; pt admits that these things are overwhelming to her and that she doesn't know how she can stop any of it; pt states that she is or will be seen as a bad person if she lets people down and does not fulfill all of these duties; pt admits that she has lost contact with God for He helps everyone else but me and lost hope that anything will ever be better; pt says she knows in her head the right answers but believes that she must perform and do everything she can to serve God; much listening, offering of other ideas, compassionate empathy and presentation of a true identity and better management of her life activities; pt welcomes prayer, as sitter has not yet returned, the conversation continues with more life review and understanding of spouse's role in this situation; again compassionate care and listening given; sitter returned and visit ended with offer of ongoing support as needed
--- NOTE | 2023-03-11 16:36 | PCM.DC.SUM ---
Providers Date of Admission: 03/10/23 Primary Care Physician: Dr. Maurizio Murrell MD Consultations 03/10/23 06:53 Consult: Prenatal Nurse / Pulmonary Medicine Routine Consulting Provider: Pulmonary Medicine rolando Chambers Reason for Consult: Tylenol OD EMERGENT Consult: No MD Notified: Yes Date Notified: 03/10/23 Time Notified: 06:54 Method of Notification: Text Reason For Visit: TYLENOL OVERDOSE IN SUICIDAL ATTEMPT Diagnosis Discharge Diagnosis (1) Suicide attempt by drug overdose: Status: Acute Code(s): T50.902A - Poisoning by unspecified drugs, medicaments and biological substances, intentional self-harm, initial encounter (2) Overdose on Tylenol: Status: Acute Code(s): T39.1X1A - Poisoning by 4-Aminophenol derivatives, accidental (unintentional), initial encounter Qualifiers: Encounter type: initial encounter Injury intent: intentional self-harm Qualified Code(s): T39.1X2A - Poisoning by 4-Aminophenol derivatives, intentional self-harm, initial encounter (3) Delta's thyroiditis: Status: Chronic Code(s): E06.3 - Autoimmune thyroiditis Medications at Discharge Home Medications levothyroxine 50 mcg tablet See Rx Instructions .Route .COMPLEX #60 tabs 12/12/22 clobetasol 0.05 % scalp solution 1 applic topical DAILY PSORIASIS 03/10/23 Hospital Course Operations None Procedures None Summary of Care Provided Minutes Spent on Discharge: 45 Hospital Course: Per HPI: ANIL HAYES, is a 37 F with a significant history of Delta thyroiditis on who presents emergency department with a Tylenol overdose inside at times. Reportedly patient took 28 pills of 500 mg tablets of Tylenol. She took the pill at about 4 PM on March 09, 2023. Thereafter her brought her to the emergency department. She reports lower abdominal pain, nausea and vomiting. She states that she has a lot going on that is why she tried to hurt herself. ED doctor discussed the case with poison control and recommendation was that patient be kept at the hospital. Hospital Course: 1. Suicide attempt with Tylenol overdose?37-year-old female took 14 g of Tylenol at around 4 PM and then at midnight had Tylenol level of 259 she was started on N-acetylcysteine and her Tylenol level normalized and her liver functions remained stable. At that point she was deemed safe for discharge and she was excepted by generations. I discussed with her the plan to discharge to inpatient mental health and she was agreeable we will proceed with discharge today. With note initially family wanted to take her to [place] however we cannot find a mental health facility there that would be willing to take the liability of her family transporting her given the risk. Weight / BMI Weight Weight: 134 lb 8 oz Body Mass Index (BMI) 21.6 ABG / Lab / Microbiology Data 03/11/23 03:40 03/11/23 03:40 Laboratory: Laboratory Results - last 24 hr 03/10/23 22:00: Acetaminophen 11.1 03/11/23 03:40: WBC 4.6, RBC 3.72 L, Hgb 10.8 L, Hct 34.4 L, MCV 92.5, MCH 29.0, MCHC 31.4 L, RDW Std Deviation 43.9, RDW Coeff of Jena 13.0, Plt Count 219, MPV 10.7, Immature Gran % (Auto) 0.000, Neut % (Auto) 44.9 L, Lymph % (Auto) 47.1 H, Kings % (Auto) 5.8, Eos % (Auto) 1.3, Baso % (Auto) 0.9, Absolute Neuts (auto) 2.1, Absolute Lymphs (auto) 2.18, Nucleated RBC % 0, PT 16.1 H, INR 1.3, Sodium 141, Potassium 3.8, Chloride 114 H, Carbon Dioxide 21.0, Anion Gap 6, BUN 1 L, Creatinine 0.58, Estim Creat Clear Calc 126.74, Est GFR (MDRD) Af Amer 152, Est GFR (MDRD) Non-Af 126, BUN/Creatinine Ratio 1.7 L, Glucose 89, Calcium 8.1 L, Total Bilirubin 0.50, AST 12 L, ALT 15, Alkaline Phosphatase 57, Total Protein 6.3 L, Albumin 3.1 L, Globulin 3.2, Albumin/Globulin Ratio 1.0, Acetaminophen 4.2 L Microbiology: Microbiology 03/10/23 00:35 Nasal Secretion SARS-CoV-2 Antigen (Rapid) - Final Meaningful Use Info Meaningful Use Diagnoses (Choose all that apply): None applicable Discharge Plan Admission Admit Date/Time: 03/10/23 02:00 Attending Provider: Ronni Chilel Primary Care Provider: Maurizio Murrell Consulting Providers: Wellington Travis; Celso Damian; Hussain Mcdonough; Geoff Diaz; Wes Barth; Roberth Caraballo; Jolly Rosas OPTOMETRIC TECHNOLOGIST Instructions Forms: Work / School Excuse Discharge Orders/Prescriptions Prescriptions: Continued clobetasol 0.05 % solution 1 applic TOPICAL DAILY levothyroxine 50 mcg tablet See Rx Instructions .ROUTE .COMPLEX Qty: 60 1RF Dose Instruction: Take 1 tablet by mouth once daily Rx Instructions: Take 1 tablet by mouth once daily Referrals / Follow Up: Maurizio Murrell MD [Primary Care Provider] - Disposition Disposition (needs filled in before D/C Order can be placed): Psychiatric Hospital or Unit Charges/Coding Visit Charges Inpatient E&M: 23314 Disch Hosp >30min
== END 2023-03-11 20:00 | DRG 918 ==
LOC: ED 03:02 → ICU 04:40
PROVIDERS: Internal Medicine; Admitting Provider Hospitalist; Emergency Provider Emergency Medicine; PCP Internal Medicine; Visit Provider Family Medicine
DX: T39.1X2A Poisoning by 4-Aminophenol derivatives, intentional self-harm, initial encounter (principal); E06.3 Autoimmune thyroiditis; R11.2 Nausea with vomiting, unspecified; R10.30 Lower abdominal pain, unspecified; Z79.899 Other long term (current) drug therapy
CPT/HCPCS: 80048; 80053; 80076; 80307; 80329; 82077; 84703; 85025; 85610; 87811; 93005; 99285; J7030; J7050; A4216; G0480; J2405